=== PATIENT | male | born 1955 | race Caucasian/White ===

== ENCOUNTER → 2016-12-17 | Outpatient (CLI) | payer OTHER ==
[~2016-12-17] MED LIST: FLOVENT 110.088 GM/I INH; FLUOXETINE HCL20 MG PO; IPRAT-ALBUT 0.5-3 ML INH; LIPITOR TAB 1010 MG PO; LISINOPRIL-HCT1 EAC2 PO; MULTIVITAMINS1 EAC1 PO; NITROSTAT0.4 MG SL; SYMBICORT 16010.2 GM INH; VENTOLIN HFA 66.7 GM INH; VITAMIN D1000 UNI1 PO
== END ==
LOC: HEART 5 15:00
DX: J44.9 Chronic obstructive pulmonary disease, unspecified (principal); R94.2 Abnormal results of pulmonary function studies
CPT/HCPCS: 94060; 94729

== ENCOUNTER → 2016-12-31 | Outpatient (CLI) | payer OTHER | LOC: HEART 5 08:27 | DX: R07.9 Chest pain, unspecified (principal); R06.02 Shortness of breath | CPT/HCPCS: 78452; A9502; J2785 ==

== ENCOUNTER → 2017-02-01 | Outpatient (CLI) | payer OTHER ==
[2017-02-01 10:18] LABS: HEMOGLOBIN 12.7 gm/dl (14.0-17.5); RED BLOOD COUNT 4.41 M/UL (4.20-5.50); WHITE BLOOD COUNT 5.6 K/UL (4.5-11.0)
[2017-02-01 10:55] LABS: BUN/CREATININE RATIO 9 (0-10)
== END ==
LOC: LAB 09:39
PROVIDERS: Internal Medicine Interventional Cardiology
DX: R06.02 Shortness of breath (principal)
CPT/HCPCS: 36415; 80048; 85025; 85610; 85730; 93005

== ENCOUNTER → 2017-02-04 | Outpatient (CLI) | payer OTHER | END | disposition home or self-care (01) | LOC: CATH 06:54 | DX: I25.118 Atherosclerotic heart disease of native coronary artery with other forms of angina pectoris (principal); I10 Essential (primary) hypertension; I71.2 Thoracic aortic aneurysm, without rupture; R06.02 Shortness of breath; R94.8 Abnormal results of function studies of other organs and systems; F17.210 Nicotine dependence, cigarettes, uncomplicated; F12.10 Cannabis abuse, uncomplicated; J44.9 Chronic obstructive pulmonary disease, unspecified; Z79.1 Long term (current) use of non-steroidal anti-inflammatories (NSAID); Z79.899 Other long term (current) drug therapy; J30.9 Allergic rhinitis, unspecified; F51.04 Psychophysiologic insomnia | CPT/HCPCS: C1769; J1644; J2250; J3010; J7030; Q0163; Q9963 ==

== ENCOUNTER → 2020-12-20 | Outpatient (CLI) | payer MEDICARE, OTHER | LOC: CT 08:45 | DX: R04.2 Hemoptysis (principal); M54.9 Dorsalgia, unspecified; I77.89 Other specified disorders of arteries and arterioles; J43.9 Emphysema, unspecified; R91.1 Solitary pulmonary nodule; M47.816 Spondylosis without myelopathy or radiculopathy, lumbar region; Z87.828 Personal history of other (healed) physical injury and trauma | CPT/HCPCS: 36415; 71275; 72100; 72202; 82565; Q9967 ==

== ENCOUNTER → 2021-06-26 | Outpatient (CLI) | payer MEDICARE, OTHER | LOC: RAD 13:26 | DX: M54.5 Low back pain (principal); M47.816 Spondylosis without myelopathy or radiculopathy, lumbar region | CPT/HCPCS: 72100; 72202 ==

== ENCOUNTER → 2021-10-20 | Outpatient (CLI) | payer MEDICARE, OTHER | LOC: HEART 5 14:24 → EXRD 14:24 | DX: R06.02 Shortness of breath (principal); R94.2 Abnormal results of pulmonary function studies | CPT/HCPCS: 94060; 94729 ==

== ENCOUNTER → 2021-12-22 | Outpatient (CLI) | payer MEDICARE, OTHER | LOC: RAD 11:57 | DX: M25.511 Pain in right shoulder (principal); M25.512 Pain in left shoulder; M19.012 Primary osteoarthritis, left shoulder; M19.011 Primary osteoarthritis, right shoulder | CPT/HCPCS: 73030 ==

== ENCOUNTER 2022-04-03 09:35 | Emergency (ER) | payer MEDICARE, OTHER ==
[2022-04-03] MEDS ORDERED: AMOX TR-K CLV1 EAC4 PO (11:37)
== END 2022-04-03 12:15 | disposition home or self-care (01) ==
LOC: ER1 09:35
DX: J35.8 Other chronic diseases of tonsils and adenoids (principal); I10 Essential (primary) hypertension; J44.9 Chronic obstructive pulmonary disease, unspecified; E78.5 Hyperlipidemia, unspecified; Z85.828 Personal history of other malignant neoplasm of skin
CPT/HCPCS: 99283

== ENCOUNTER → 2022-04-23 | Outpatient (CLI) | payer MEDICARE, OTHER ==
[~2022-04-23] MED LIST changes: +AMOX TR-K CLV1 EAC4 PO
== END ==
LOC: CT 07:39
DX: J35.1 Hypertrophy of tonsils (principal)
CPT/HCPCS: 36415; 70491; 82565; 84520; Q9967

== ENCOUNTER → 2022-05-26 | Outpatient (CLI) | payer MEDICARE, OTHER | LOC: EXRD 10:15 | DX: I65.23 Occlusion and stenosis of bilateral carotid arteries (principal) | CPT/HCPCS: 93880 ==

== ENCOUNTER → 2022-06-10 | Outpatient (CLI) | payer MEDICARE, OTHER | LOC: HEART 5 10:30 → KOH-I 14:19 → HEART 5 14:30 | DX: F17.210 Nicotine dependence, cigarettes, uncomplicated (principal); I73.9 Peripheral vascular disease, unspecified; R91.8 Other nonspecific abnormal finding of lung field | CPT/HCPCS: 71271 ==